=== PATIENT | male | born 1940 | race Caucasian/White ===

== ENCOUNTER 2017-08-15 16:05 | Emergency (ER) | payer MEDICARE ==
[~2017-08-15 16:05] MED LIST: ALLO100T PO; ASPI-555 PO; FOLI0.4T2 PO; LEVO50TA11 PO; PARO10TA71 PO; TIOT18CA3 IH
[2017-08-15 16:25] LABS: BASOPHILS % (AUTO) 0.6 % (0.0-5.0); EOSINOPHILS % (AUTO) 1.5 % (0.0-8.0); HEMATOCRIT 44.7 % (42-54); LYMPHOCYTES % (AUTO) 27.2 % (21.0-51.0); MEAN CORPUSCULAR HEMOGLOBIN 34.1 pg (27.0-33.0); MEAN CORPUSCULAR HGB CONC 34.6 g/dL (32.0-36.0); MEAN CORPUSCULAR VOLUME 98.7 fL (79-99); MONOCYTES % (AUTO) 8.6 % (3.0-13.0); NEUTROPHILS % (AUTO) 62.1 % (40.0-77.0); NUCLEATED RED BLOOD CELLS 0.1 % (0.0-0.19); PLATELET COUNT (AUTO) 245 K/uL (130-400); RED BLOOD CELL COUNT(AUTO) 4.53 MIL/uL (4.50-6.20); RED CELL DISTRIBUTION WIDTH 13.3 % (11.0-15.5); WHITE BLOOD COUNT (AUTO) 12.1 K/uL (4.8-10.8)
[2017-08-15 16:36] LABS: INR 0.96 (0.85-1.15); PARTIAL THROMBOPLASTIN TIME 25.7 SEC (26.3-35.5); PROTHROMBIN TIME 10.1 SEC (9.6-11.6)
[2017-08-15 16:43] LABS: CREATININE 1.1 mg/dL (0.5-1.5)
[2017-08-15 16:56] LABS: ALBUMIN 3.3 g/dL (3.5-5.0); BILIRUBIN,TOTAL 0.3 mg/dL (0.2-1.0); CREATINE KINASE MB 1.1 ng/mL (0.5-3.6); TOTAL PROTEIN, SERUM 7.6 g/dL (6.0-8.3)
[2017-08-15] MEDS ORDERED: SODIUM CHLORIDE 0.9% 1000ML 1,000 ML IV ONE (19:33)
[2017-08-15 22:23] LABS: APPEARANCE,URINE Clear (CLEAR); BILIRUBIN,URINE Negative (NEGATIVE); COLOR,URINE Yellow (YELLOW); GLUCOSE, URINE (UA) Negative (NEGATIVE); KETONES,URINE Negative (NEGATIVE); LEUKOCYTE ESTERASE ,URINE Negative (NEGATIVE); NITRATE,URINE Negative (NEGATIVE); OCCULT BLOOD,URINE Negative (NEGATIVE); PROTEIN,URINE Negative (NEGATIVE); UROBILINOGEN,URINE 0.2 mg/dL (0.2-1.0)
[2017-08-16] MEDS ORDERED: ASPIRIN 325 MG TABLET ONE (00:24)
== END 2017-08-16 01:23 | disposition short-term general hospital (02) ==
LOC: EDH 16:05
DX: R55 Syncope and collapse (principal); R41.82 Altered mental status, unspecified; I48.91 Unspecified atrial fibrillation; I48.92 Unspecified atrial flutter; F10.929 Alcohol use, unspecified with intoxication, unspecified; J44.9 Chronic obstructive pulmonary disease, unspecified; M10.9 Gout, unspecified; E07.9 Disorder of thyroid, unspecified; Z79.899 Other long term (current) drug therapy; Z72.0 Tobacco use
CPT/HCPCS: 36415; 70450; 72125; 80053; 81003; 82550; 82553; 82948; 83605 ×2; 84484; 85025; 85610; 85730; 93005; 96360; 96361; 99291; G0480; J7030

== ENCOUNTER 2021-05-29 09:26 | Emergency (ER) | payer MEDICARE ==
[~2021-05-29] VITALS: Ht 175.3 cm; Wt 70.3 kg
[~2021-05-29 09:26] MED LIST changes: -ASPI-555 PO; +ASPI-556 PO; -FOLI0.4T2 PO; +FOLI0.4T6 PO
[2021-05-29 10:20] LABS: BASOPHILS % (AUTO) 0.2 % (0.0-5.0); EOSINOPHILS % (AUTO) 0.3 % (0.0-8.0); HEMATOCRIT 32.3 % (42-54); LYMPHOCYTES % (AUTO) 11.8 % (21.0-51.0); MEAN CORPUSCULAR HEMOGLOBIN 30.3 pg (27.0-33.0); MEAN CORPUSCULAR HGB CONC 33.1 g/dL (32.0-36.0); MEAN CORPUSCULAR VOLUME 91.5 fL (79-99); MONOCYTES % (AUTO) 9.8 % (3.0-13.0); NEUTROPHILS % (AUTO) 77.4 % (40.0-77.0); PLATELET COUNT (AUTO) 338 K/uL (130-400); RED BLOOD CELL COUNT(AUTO) 3.53 MIL/uL (4.50-6.20); RED CELL DISTRIBUTION WIDTH 13.1 % (11.0-15.5); WHITE BLOOD COUNT (AUTO) 13.1 K/uL (4.8-10.8)
[2021-05-29 10:53] LABS: BILIRUBIN,TOTAL 0.4 mg/dL (0.2-1.0); CREATININE 1.8 mg/dL (0.5-1.5); POTASSIUM 3.4 mmol/L (3.5-5.1)
[2021-05-29] MEDS ORDERED: 0.9%NACL 1000ML 1,000 ML IV ONE ×2 (12:00→14:00)
[2021-05-29 14:11] LABS: APPEARANCE,URINE Cloudy (CLEAR); BILIRUBIN,URINE Negative (NEGATIVE); COLOR,URINE Yellow (YELLOW); GLUCOSE, URINE (UA) Negative (NEGATIVE); KETONES,URINE Trace mg/dL (NEGATIVE); LEUKOCYTE ESTERASE ,URINE Small (NEGATIVE); NITRATE,URINE Negative (NEGATIVE); OCCULT BLOOD,URINE Negative (NEGATIVE); PROTEIN,URINE Trace mg/dL (NEGATIVE)
[2021-05-29 14:37] LABS: BACTERIA,URINE Moderate /HPF (None Seen); RBC,URINE 0-1 /HPF (0-1); SQUAMOUS EPITHELIAL CELL,UR Few /HPF (0-2)
[2021-05-29 14:39] LABS: TRANSITIONAL EPI CELLS,URINE Few /HPF (None Seen)
[2021-05-29] MEDS ORDERED: CEPH500B PO (16:22)
[2021-05-29 16:46] VITALS: BP 108/54
== END 2021-05-29 16:48 | disposition home or self-care (01) ==
LOC: EDH 09:26
DX: N39.0 Urinary tract infection, site not specified (principal); E86.0 Dehydration; I95.2 Hypotension due to drugs; E86.1 Hypovolemia; J44.9 Chronic obstructive pulmonary disease, unspecified; M19.90 Unspecified osteoarthritis, unspecified site; Z79.82 Long term (current) use of aspirin; Z79.899 Other long term (current) drug therapy; Z95.0 Presence of cardiac pacemaker
CPT/HCPCS: 36415; 74176; 80053; 81001; 84484; 85025; 87088; 93005; 96360; 96361 ×2; 99285; J7030 ×2

== ENCOUNTER 2021-07-20 06:56 | Inpatient (IN) | payer MEDICARE ==
[~2021-07-20] VITALS: Ht 177.8 cm; Wt 63.7 kg
[~2021-07-20 06:56] MED LIST changes: +ALBU18HF7 IH; -ALLO100T PO; +APIX2.5T PO; -ASPI-556 PO; +ESCI20TA38 PO; +MEMA5TAB42 PO; -TIOT18CA3 IH; +TRAZ-185 PO; +UMEC1DIS IH; +VITA400C79 PO
[2021-07-20 08:31] LABS: BASOPHILS % (AUTO) 0.1 % (0.0-5.0); EOSINOPHILS % (AUTO) 0.3 % (0.0-8.0); HEMATOCRIT 32.4 % (42-54); MEAN CORPUSCULAR HEMOGLOBIN 29.3 pg (27.0-33.0); MEAN CORPUSCULAR HGB CONC 30.9 g/dL (32.0-36.0); NEUTROPHILS % (AUTO) 80.9 % (40.0-77.0); PLATELET COUNT (AUTO) 233 K/uL (130-400); RED BLOOD CELL COUNT(AUTO) 3.41 MIL/uL (4.50-6.20); RED CELL DISTRIBUTION WIDTH 14.7 % (11.0-15.5); WHITE BLOOD COUNT (AUTO) 7.5 K/uL (4.8-10.8)
[2021-07-20 08:50] LABS: B-TYPE NATRIURETIC PEPTIDE 495 pg/mL (0-100)
[2021-07-20 08:56] LABS: BILIRUBIN,TOTAL 0.5 mg/dL (0.2-1.0); POTASSIUM 3.8 mmol/L (3.5-5.1); TOTAL PROTEIN, SERUM 6.5 g/dL (6.0-8.3)
[2021-07-20] MEDS ORDERED: IPRATROPIUM/ALBUTEROL SULFATE 3 ML SOLUTION IH ONE (09:00)
[2021-07-20] MEDS ORDERED: SOLU-MEDROL 125MG VIAL IVP ONE (09:00)
[2021-07-20 09:09] LABS: APPEARANCE,URINE Clear (CLEAR); BILIRUBIN,URINE Negative (NEGATIVE); COLOR,URINE Dark Yellow (YELLOW); GLUCOSE, URINE (UA) Negative (NEGATIVE); KETONES,URINE 15 mg/dL (NEGATIVE); LEUKOCYTE ESTERASE ,URINE Trace (NEGATIVE); NITRATE,URINE Negative (NEGATIVE); OCCULT BLOOD,URINE Trace (NEGATIVE); PROTEIN,URINE POS 1+ mg/dL (NEGATIVE)
[2021-07-20 09:10] LABS: ALBUMIN 2.3 g/dL (3.5-5.0); CRP QUANTITATIVE 136.9 mg/L (0.00-9.0); MAGNESIUM 1.9 mg/dL (1.80-2.40)
[2021-07-20 09:17] LABS: SQUAMOUS EPITHELIAL CELL,UR Rare /HPF (0-2)
[2021-07-20 09:18] LABS: BACTERIA,URINE Many /HPF (None Seen)
[2021-07-20] MEDS ORDERED: ALBUTEROL INHALER 90MCG/INH IH PRN (10:00)
[2021-07-20] MEDS ORDERED: SOLU-MEDROL 125MG VIAL ONE (10:04)
[2021-07-20] MEDS: DOXYCYCLINE 100MG+NS 250ML IV SCH ×2 (10:24→13:30)
[2021-07-20] MEDS ORDERED: ACETAMINOPHEN 325 MG TAB PO PRN (13:30)
[2021-07-20] MEDS ORDERED: HYDRALAZINE 20MG/ML VIAL IV PRN (13:30)
[2021-07-20] MEDS ORDERED: ONDANSETRON 4MG INJ IV PRN (13:30)
[2021-07-20] MEDS ORDERED: IOHEXOL-350 75 ML VIAL IV ONE (15:34)
[2021-07-20] MEDS: SOLU-MEDROL 125MG VIAL IVP SCH (16:14)
[2021-07-20] MEDS: IPRATROPIUM/ALBUTEROL SULFATE 3 ML SOLUTION IH SCH ×2 (18:00→23:44)
[2021-07-20] MEDS: BUDESONIDE 0.25 MG/2 ML INH IH SCH (18:00)
[2021-07-20] MEDS: FAMOTIDINE 20MG VIAL IV SCH (20:33)
[2021-07-20 23:46] VITALS: BP 130/67
[2021-07-21] VITALS: BP 112/74
[2021-07-21] MEDS ORDERED: SOLU-MEDROL 40MG VIAL ONE ×2 (00:03→23:58)
[2021-07-21] MEDS ORDERED: 0.9% NACL 250ML 250 ML ONE ×2 (00:04→19:43)
[2021-07-21] MEDS: DOXYCYCLINE 100MG+NS 250ML IV SCH ×5 (00:20→20:54)
[2021-07-21 04:00] VITALS: BP 132/74
[2021-07-21] MEDS: IPRATROPIUM/ALBUTEROL SULFATE 3 ML SOLUTION IH SCH ×4 (06:28→23:32)
[2021-07-21] MEDS: BUDESONIDE 0.25 MG/2 ML INH IH SCH ×2 (06:28→17:35)
[2021-07-21 08:51] LABS: HEMATOCRIT 32.9 % (42-54); MEAN CORPUSCULAR HEMOGLOBIN 29.9 pg (27.0-33.0); MEAN CORPUSCULAR HGB CONC 31.3 g/dL (32.0-36.0); MEAN CORPUSCULAR VOLUME 95.6 fL (79-99); RED BLOOD CELL COUNT(AUTO) 3.44 MIL/uL (4.50-6.20); RED CELL DISTRIBUTION WIDTH 14.6 % (11.0-15.5)
[2021-07-21 09:16] LABS: CREATININE 1.1 mg/dL (0.5-1.5); POTASSIUM 3.9 mmol/L (3.5-5.1)
[2021-07-21] MEDS: SOLU-MEDROL 125MG VIAL IVP SCH ×4 (09:46→23:30)
[2021-07-21] MEDS: FAMOTIDINE 20MG VIAL IV SCH ×2 (09:46→20:53)
[2021-07-21] MEDS: ENOXAPARIN SODIUM 40 MG/0.4 ML SYRINGE SQ SCH (10:20)
[2021-07-21 11:41] VITALS: BP 92/52
[2021-07-21 11:43] VITALS: BP 134/62
[2021-07-21] MEDS: ACETAMINOPHEN 325 MG TAB PO PRN (16:06)
[2021-07-21 16:26] VITALS: BP 125/69
[2021-07-21] MEDS ORDERED: FUROSEMIDE 20MG VIAL ONE (17:20)
[2021-07-21] MEDS: FUROSEMIDE 20MG VIAL IV SCH (17:30)
[2021-07-21 20:00] VITALS: BP 132/63
[2021-07-22] VITALS: BP 146/73
[2021-07-22 04:00] VITALS: BP 139/89
[2021-07-22] MEDS: FUROSEMIDE 20MG VIAL IV SCH ×2 (04:06→16:25)
[2021-07-22 05:05] LABS: HEMATOCRIT 31.9 % (42-54); MEAN CORPUSCULAR HEMOGLOBIN 29.8 pg (27.0-33.0); MEAN CORPUSCULAR HGB CONC 31.3 g/dL (32.0-36.0); MEAN CORPUSCULAR VOLUME 94.9 fL (79-99); RED BLOOD CELL COUNT(AUTO) 3.36 MIL/uL (4.50-6.20); WHITE BLOOD COUNT (AUTO) 10.6 K/uL (4.8-10.8)
[2021-07-22 05:12] LABS: CREATININE 1.4 mg/dL (0.5-1.5); POTASSIUM 3.2 mmol/L (3.5-5.1)
[2021-07-22] MEDS: BUDESONIDE 0.25 MG/2 ML INH IH SCH ×2 (06:44→19:26)
[2021-07-22] MEDS: IPRATROPIUM/ALBUTEROL SULFATE 3 ML SOLUTION IH SCH ×3 (07:14→19:06)
[2021-07-22 08:00] VITALS: BP 130/73
[2021-07-22] MEDS: SOLU-MEDROL 125MG VIAL IVP SCH ×2 (09:52→16:24)
[2021-07-22] MEDS: DOXYCYCLINE 100MG+NS 250ML IV SCH ×2 (09:52→14:17)
[2021-07-22] MEDS: ENOXAPARIN SODIUM 40 MG/0.4 ML SYRINGE SQ SCH (09:52)
[2021-07-22] MEDS: FAMOTIDINE 20MG VIAL IV SCH ×2 (09:53→21:32)
[2021-07-22 12:00] VITALS: BP 129/75
[2021-07-22 16:00] VITALS: BP 143/91
[2021-07-22 19:00] VITALS: BP 144/85
[2021-07-22] MEDS: ACETAMINOPHEN 325 MG TAB PO PRN (21:33)
[2021-07-23] VITALS: BP 131/82
[2021-07-23] MEDS: SOLU-MEDROL 125MG VIAL IVP SCH ×3 (00:06→15:49)
[2021-07-23] MEDS: IPRATROPIUM/ALBUTEROL SULFATE 3 ML SOLUTION IH SCH ×5 (00:10→23:42)
[2021-07-23] MEDS ORDERED: 0.9% NACL 250ML 250 ML ONE (00:34)
[2021-07-23] MEDS: DOXYCYCLINE 100MG+NS 250ML IV SCH ×3 (03:05→13:14)
[2021-07-23 04:00] VITALS: BP 140/79
[2021-07-23 05:23] LABS: HEMATOCRIT 34.9 % (42-54); MEAN CORPUSCULAR HEMOGLOBIN 29.9 pg (27.0-33.0); MEAN CORPUSCULAR HGB CONC 31.5 g/dL (32.0-36.0); MEAN CORPUSCULAR VOLUME 94.8 fL (79-99); RED BLOOD CELL COUNT(AUTO) 3.68 MIL/uL (4.50-6.20); WHITE BLOOD COUNT (AUTO) 10.6 K/uL (4.8-10.8)
[2021-07-23 05:38] LABS: CREATININE 1.1 mg/dL (0.5-1.5); POTASSIUM 3.4 mmol/L (3.5-5.1)
[2021-07-23] MEDS: FUROSEMIDE 20MG VIAL IV SCH ×2 (05:43→16:38)
[2021-07-23] MEDS: BUDESONIDE 0.25 MG/2 ML INH IH SCH ×2 (06:47→19:06)
[2021-07-23 07:05] VITALS: BP 135/81
[2021-07-23] MEDS: FAMOTIDINE 20MG VIAL IV SCH ×2 (08:43→21:38)
[2021-07-23] MEDS: ENOXAPARIN SODIUM 40 MG/0.4 ML SYRINGE SQ SCH (08:44)
[2021-07-23 12:00] VITALS: BP 143/84
[2021-07-23 16:00] VITALS: BP 137/107
[2021-07-23 21:20] VITALS: BP 141/80
[2021-07-23] MEDS: ZOLPIDEM TARTRATE 5 MG TAB PO PRN (21:38)
[2021-07-23] MEDS: MEMANTINE HCL 5 MG TABLET PO SCH (21:38)
[2021-07-23] MEDS: TRAZODONE HCL 50 MG TAB PO SCH (21:38)
[2021-07-24 00:03] VITALS: BP 127/75
[2021-07-24] MEDS: SOLU-MEDROL 125MG VIAL IVP SCH ×4 (00:21→22:36)
[2021-07-24] MEDS: DOXYCYCLINE 100MG+NS 250ML IV SCH ×2 (00:21→13:30)
[2021-07-24] MEDS: FUROSEMIDE 20MG VIAL IV SCH ×2 (04:25→16:57)
[2021-07-24 04:41] LABS: HEMATOCRIT 30.1 % (42-54); MEAN CORPUSCULAR HEMOGLOBIN 29.6 pg (27.0-33.0); MEAN CORPUSCULAR HGB CONC 31.6 g/dL (32.0-36.0); MEAN CORPUSCULAR VOLUME 93.8 fL (79-99); RED BLOOD CELL COUNT(AUTO) 3.21 MIL/uL (4.50-6.20); RED CELL DISTRIBUTION WIDTH 14.9 % (11.0-15.5); WHITE BLOOD COUNT (AUTO) 8.8 K/uL (4.8-10.8)
[2021-07-24 04:58] LABS: CREATININE 1.1 mg/dL (0.5-1.5); POTASSIUM 3.1 mmol/L (3.5-5.1)
[2021-07-24 05:00] VITALS: BP 160/95
[2021-07-24] MEDS: LEVOTHYROXINE 50 MCG TABLET PO SCH (05:40)
[2021-07-24] MEDS: IPRATROPIUM/ALBUTEROL SULFATE 3 ML SOLUTION IH SCH ×2 (06:29→19:35)
[2021-07-24] MEDS: BUDESONIDE 0.25 MG/2 ML INH IH SCH ×2 (06:29→19:36)
[2021-07-24 08:32] VITALS: BP 144/81
[2021-07-24] MEDS: FOLIC ACID 0.4 MG PO SCH (09:00)
[2021-07-24] MEDS: VITAMIN E 400 UNIT CAPSULE PO SCH (10:27)
[2021-07-24] MEDS: CITALOPRAM 20 MG TABLET PO SCH (10:28)
[2021-07-24] MEDS: ENOXAPARIN SODIUM 40 MG/0.4 ML SYRINGE SQ SCH (10:29)
[2021-07-24] MEDS: FAMOTIDINE 20MG VIAL IV SCH ×2 (10:39→20:31)
[2021-07-24] MEDS: MEMANTINE HCL 5 MG TABLET PO SCH ×2 (10:40→20:31)
[2021-07-24] MEDS: ACETAMINOPHEN 325 MG TAB PO PRN ×2 (11:22→20:32)
[2021-07-24 11:48] VITALS: BP 141/80
[2021-07-24 16:19] VITALS: BP 139/82
[2021-07-24] MEDS: TRAMADOL HCL 50 MG TABLET PO PRN ×2 (17:03→23:40)
[2021-07-24 20:04] VITALS: BP 156/78
[2021-07-24] MEDS: TRAZODONE HCL 50 MG TAB PO SCH (20:31)
[2021-07-24] MEDS: ZOLPIDEM TARTRATE 5 MG TAB PO PRN (23:39)
[2021-07-25 00:04] VITALS: BP 154/81
[2021-07-25] MEDS: DOXYCYCLINE 100MG+NS 250ML IV SCH ×2 (01:12→16:28)
[2021-07-25 04:04] VITALS: BP 117/76
[2021-07-25 04:09] LABS: HEMATOCRIT 30.9 % (42-54); LYMPHOCYTES % (AUTO) 8.8 % (21.0-51.0); MEAN CORPUSCULAR HEMOGLOBIN 29.1 pg (27.0-33.0); MEAN CORPUSCULAR HGB CONC 30.7 g/dL (32.0-36.0); MEAN CORPUSCULAR VOLUME 94.5 fL (79-99); NEUTROPHILS % (AUTO) 86.8 % (40.0-77.0); PLATELET COUNT (AUTO) 200 K/uL (130-400); RED BLOOD CELL COUNT(AUTO) 3.27 MIL/uL (4.50-6.20); RED CELL DISTRIBUTION WIDTH 14.7 % (11.0-15.5); WHITE BLOOD COUNT (AUTO) 6.3 K/uL (4.8-10.8)
[2021-07-25 04:24] LABS: CREATININE 1.2 mg/dL (0.5-1.5)
[2021-07-25] MEDS: FUROSEMIDE 20MG VIAL IV SCH ×2 (04:24→16:29)
[2021-07-25 04:59] LABS: POTASSIUM 2.9 mmol/L (3.5-5.1)
[2021-07-25] MEDS ORDERED: POTASSIUM CHLORIDE 10% ELIXIR 20 MEQ/15 ML UDCUP PO PRN (05:30)
[2021-07-25] MEDS ORDERED: KCL 20 MEQ ERTAB PO PRN (05:30)
[2021-07-25] MEDS: IPRATROPIUM/ALBUTEROL SULFATE 3 ML SOLUTION IH SCH ×4 (06:26→23:54)
[2021-07-25] MEDS: BUDESONIDE 0.25 MG/2 ML INH IH SCH ×2 (06:26→19:04)
[2021-07-25] MEDS: SOLU-MEDROL 125MG VIAL IVP SCH ×3 (06:27→22:49)
[2021-07-25] MEDS: LIDOCAINE HCL-MPF 1% 2ML VIAL IV PRN ×3 (06:27→23:12)
[2021-07-25] MEDS: POTASSIUM CHLORIDE 20MEQ/100ML 100 ML IV PRN ×3 (06:27→23:12)
[2021-07-25] MEDS: LEVOTHYROXINE 50 MCG TABLET PO SCH (06:27)
[2021-07-25 08:00] VITALS: BP 116/82
[2021-07-25] MEDS: FOLIC ACID 0.4 MG PO SCH (09:00)
[2021-07-25] MEDS: MEMANTINE HCL 5 MG TABLET PO SCH ×2 (09:20→20:39)
[2021-07-25] MEDS: VITAMIN E 400 UNIT CAPSULE PO SCH (09:20)
[2021-07-25] MEDS: TRAMADOL HCL 50 MG TABLET PO PRN (09:21)
[2021-07-25] MEDS: CITALOPRAM 20 MG TABLET PO SCH (09:21)
[2021-07-25] MEDS: FAMOTIDINE 20MG VIAL IV SCH ×2 (09:21→19:55)
[2021-07-25] MEDS: BALSAM PERU/CASTOR OIL 60 GM TUBE TP SCH ×2 (09:22→20:01)
[2021-07-25] MEDS: ENOXAPARIN SODIUM 40 MG/0.4 ML SYRINGE SQ SCH (09:22)
[2021-07-25 12:00] VITALS: BP 131/88
[2021-07-25] MEDS: MORPHINE 2 MG SYG IVP PRN ×2 (15:15→23:13)
[2021-07-25] MEDS: LORAZEPAM 2 MG/ML 1 ML VIAL IVP PRN (19:39)
[2021-07-25 20:00] VITALS: BP 128/81
[2021-07-25] MEDS: TRAZODONE HCL 50 MG TAB PO SCH (20:39)
[2021-07-26] VITALS: BP 182/86
[2021-07-26 00:30] VITALS: BP 120/75
[2021-07-26] MEDS: DOXYCYCLINE 100MG+NS 250ML IV SCH ×2 (01:25→11:59)
[2021-07-26 03:15] VITALS: BP 151/71
[2021-07-26] MEDS: FUROSEMIDE 20MG VIAL IV SCH ×2 (04:58→15:22)
[2021-07-26] MEDS: LEVOTHYROXINE 50 MCG TABLET PO SCH (05:19)
[2021-07-26] MEDS: TRAMADOL HCL 50 MG TABLET PO PRN ×2 (05:19→23:32)
[2021-07-26] MEDS: SOLU-MEDROL 125MG VIAL IVP SCH ×2 (05:52→15:22)
[2021-07-26 05:59] LABS: BASOPHILS % (AUTO) 0.1 % (0.0-5.0); LYMPHOCYTES % (AUTO) 3.9 % (21.0-51.0); MEAN CORPUSCULAR HEMOGLOBIN 29.3 pg (27.0-33.0); MEAN CORPUSCULAR HGB CONC 30.3 g/dL (32.0-36.0); MEAN CORPUSCULAR VOLUME 96.7 fL (79-99); MONOCYTES % (AUTO) 2.9 % (3.0-13.0); NUCLEATED RED BLOOD CELLS 0.1 % (0.0-0.19); PLATELET COUNT (AUTO) 238 K/uL (130-400); RED BLOOD CELL COUNT(AUTO) 3.93 MIL/uL (4.50-6.20); RED CELL DISTRIBUTION WIDTH 14.8 % (11.0-15.5); WHITE BLOOD COUNT (AUTO) 15.1 K/uL (4.8-10.8)
[2021-07-26 06:19] LABS: CREATININE 1.2 mg/dL (0.5-1.5); POTASSIUM 3.9 mmol/L (3.5-5.1)
[2021-07-26] MEDS: IPRATROPIUM/ALBUTEROL SULFATE 3 ML SOLUTION IH SCH ×4 (06:49→23:14)
[2021-07-26] MEDS: BUDESONIDE 0.25 MG/2 ML INH IH SCH ×2 (06:49→18:45)
[2021-07-26 08:00] VITALS: BP 134/86
[2021-07-26] MEDS: MORPHINE 2 MG SYG IVP PRN ×2 (09:00→15:32)
[2021-07-26] MEDS: MEMANTINE HCL 5 MG TABLET PO SCH ×2 (09:05→20:07)
[2021-07-26] MEDS: ENOXAPARIN SODIUM 40 MG/0.4 ML SYRINGE SQ SCH (09:06)
[2021-07-26] MEDS: VITAMIN E 400 UNIT CAPSULE PO SCH (09:06)
[2021-07-26] MEDS: FAMOTIDINE 20MG VIAL IV SCH ×2 (09:07→20:07)
[2021-07-26] MEDS: CITALOPRAM 20 MG TABLET PO SCH (09:07)
[2021-07-26] MEDS: BALSAM PERU/CASTOR OIL 60 GM TUBE TP SCH ×3 (09:07→20:21)
[2021-07-26] MEDS: METOPROLOL TARTRATE 25 MG TAB PO SCH ×2 (09:10→20:07)
[2021-07-26] MEDS: FOLIC ACID 0.4 MG PO SCH (09:11)
[2021-07-26 12:00] VITALS: BP 135/71
[2021-07-26] MEDS: TRAZODONE HCL 50 MG TAB PO SCH (20:07)
[2021-07-26] MEDS: ACETAMINOPHEN 325 MG TAB PO PRN (20:08)
[2021-07-26 20:17] VITALS: BP 142/79
[2021-07-27] MEDS: MORPHINE 2 MG SYG IVP PRN ×2 (00:30→05:15)
[2021-07-27] MEDS: TRAMADOL HCL 50 MG TABLET PO PRN (03:42)
[2021-07-27] MEDS: FUROSEMIDE 20MG VIAL IV SCH (03:42)
[2021-07-27] MEDS: LEVOTHYROXINE 50 MCG TABLET PO SCH (05:05)
[2021-07-27] MEDS: MEMANTINE HCL 5 MG TABLET PO SCH (07:57)
[2021-07-27] MEDS: FAMOTIDINE 20MG VIAL IV SCH (07:57)
[2021-07-27] MEDS: METOPROLOL TARTRATE 25 MG TAB PO SCH (07:57)
[2021-07-27] MEDS: CITALOPRAM 20 MG TABLET PO SCH (07:58)
[2021-07-27] MEDS: LORAZEPAM 2 MG/ML 1 ML VIAL IVP PRN (07:59)
[2021-07-27 08:00] VITALS: BP 146/75
[2021-07-27] MEDS: BUDESONIDE 0.25 MG/2 ML INH IH SCH (08:41)
[2021-07-27] MEDS: IPRATROPIUM/ALBUTEROL SULFATE 3 ML SOLUTION IH SCH (08:41)
[2021-07-27] MEDS: FOLIC ACID 0.4 MG PO SCH (09:00)
[2021-07-27] MEDS: BALSAM PERU/CASTOR OIL 60 GM TUBE TP SCH (09:50)
== END 2021-07-27 12:43 | disposition hospice, inpatient (51) | DRG 193 ==
LOC: EDH 06:56 → EDHIP 13:20 → 4CH 23:39
PROVIDERS: ADMIT Hospitalist; ATTEND Hospitalist
PROC: 5A09357 Assistance with Respiratory Ventilation, Less than 24 Consecutive Hours, Continuous Positive Airway Pressure (ICD-10-PCS; principal; 2021-07-22)
PROC: 5A0935A Assistance with Respiratory Ventilation, Less than 24 Consecutive Hours, High Flow/Velocity Cannula (ICD-10-PCS; 2021-07-22)
PROC: 5A0935A Assistance with Respiratory Ventilation, Less than 24 Consecutive Hours, High Flow/Velocity Cannula (ICD-10-PCS; 2021-07-22)
DX: J15.9 Unspecified bacterial pneumonia (principal); E43 Unspecified severe protein-calorie malnutrition; J96.21 Acute and chronic respiratory failure with hypoxia; J44.1 Chronic obstructive pulmonary disease with (acute) exacerbation; N39.0 Urinary tract infection, site not specified; J44.0 Chronic obstructive pulmonary disease with (acute) lower respiratory infection; L89.319 Pressure ulcer of right buttock, unspecified stage; Z66 Do not resuscitate; I11.0 Hypertensive heart disease with heart failure; Z20.822 Contact with and (suspected) exposure to COVID-19; M19.90 Unspecified osteoarthritis, unspecified site; F03.90 Unspecified dementia, unspecified severity, without behavioral disturbance, psychotic disturbance, mood disturbance, and anxiety; L89.151 Pressure ulcer of sacral region, stage 1; D64.9 Anemia, unspecified; I50.9 Heart failure, unspecified; Z68.20 Body mass index [BMI] 20.0-20.9, adult; Z95.0 Presence of cardiac pacemaker; Z87.440 Personal history of urinary (tract) infections; Z79.51 Long term (current) use of inhaled steroids; Z74.01 Bed confinement status; Z99.81 Dependence on supplemental oxygen; Z82.49 Family history of ischemic heart disease and other diseases of the circulatory system; Z82.5 Family history of asthma and other chronic lower respiratory diseases
CPT/HCPCS: 36415; 71045; 71275; 72170; 80048; 80053; 81001; 82550; 83735; 83880; 84132; 84145; 84484; 85025; 85027; 85378; 86140; 87071; 87088; 87205; 87635; 87804; 93005; 93970; 94640; 94660; 94664; 94667; 94668; 97039; C9803; G0378; J1650; J1940; J2060; J2920; J2930; J3480; J3490; J7050; Q9967